=== PATIENT | male | born 1935 ===

== ENCOUNTER → 2016-11-21 | Outpatient (CLI) | payer MEDICARE, OTHER | LOC: LB 17:03 | PROVIDERS: ATTEND Family Medicine | DX: N39.0 Urinary tract infection, site not specified (principal); R41.82 Altered mental status, unspecified; R50.9 Fever, unspecified; N31.9 Neuromuscular dysfunction of bladder, unspecified | CPT/HCPCS: 87086; 87088; 87186 ==